=== PATIENT | male | born 1995 | race Hispanic/Latino ===

== ENCOUNTER 2022-03-22 15:11 | Emergency (ER) | payer SELFPAY ==
--- OUTSIDE RECORDS SUMMARY | 2022-03-22 16:38 | XMS REPORT | Continuity of Care Document ---
:1995 Author Organization [facility] t Address [address] [place] [address] [address] [place] [address] Care Team Providers Name Role Phone PCP, PATIENT DOES NOT HAVE A Primary Care Physician Unavaila SIRENA Milligan Attending Clinician Unavailable Sirena Gabriel Attending Clinician Problems Condition Condition Condition Status Onset Resolution Last Treating Co mments Source Name Details Category Date Date Treatment Clinician Date No known No known Disease Unive rs active active ity of problems problems [facility] Allergies, Adverse Reactions, Alerts Allergy Allergy Status Severity Reaction(s) Onset Inactive Treating Comm ents Source Name Type Date Date Clinician NO KNOWN Drug Active Univers ALLERGIE Class ity of S [facility] Social History Social Habit Start Date Stop Date Quantity Comments Source Exposure to 2022-03-10 2022-03-20 Not sure [facility] SARS-CoV-2 (event) 00:00:00 16:22:00 Medica l Branch [facility] At [birth year] [facility] Medical Branch Smoking Status Start Date Stop Date Source Tobacco smoking consumption Univ [facility] Branch Medications Ordered Filled Start Stop Current Ordering Indication Dosage Frequency Signature Comments Components Source Medication Medication Date Date Medication? Clinician (SIG) Name Name No known 2021-05 No No known Unive rs medications - medication it y of 16:22: s [address] Vital Signs Vital Name Observation Time Observation Value Comments Source Systolic blood 2022-03-20 22:24:00 164 mm[Hg] Univer sity of pressure [facility] Diastolic blood 2022-03-20 22:24:00 100 mm[Hg] [facility] of pressure [facility] Heart rate 2022-03-20 22:24:00 88 /min [facility] Body temperature 2022-03-20 22:24:00 37.06 Silva [facility] Respiratory rate 2022-03-20 22:24:00 16 /min [facility] Body height 2022-03-20 22:24:00 172.7 cm [facility] Body weight 2022-03-20 22:24:00 88.451 kg [facility] BMI 2022-03-20 22:24:00 29.65 kg/m2 [facility] Oxygen saturation in 2022-03-20 22:24:00 100 /min [facility] Arterial blood by [facility] Pulse oximetry Branch Procedures Procedure Date / Time Performed Performing Clinician Sour e URINALYSIS 2022-03-20 22:31:00 Amina Shelton [facility] Encounters Start End Encounter Admission Attending Care Care Encounter Source Date/Time Date/Time Type Type Clinicians Facility Department ID 2022-03-20 2022-03-20 Emergency X WALDROP, [facility] ERT [id number] Univers 16:28:00 18:00:00 SIRENA honeycutt [facility] 2022-03-20 2022-03-20 Emergency Waldrop, [facility] [id number] Univers 16:28:00 18:00:00 Sirena CRENSHAW [id number] i ty [facility] [id number] [facility] [id number] [facility] 084 Branch Results This patient has no known results.
[2022-03-22 16:54] LABS: Urine Blood Negative (Negative); Urine Glucose Negative (Negative); Urine Protein Negative (Negative); Urine Specific Gravity >=1.030 (1.005-1.030); Urine pH 5.5 (5.0-7.0)
[2022-03-22 17:11] LABS: Urine Mucus 2+ /HPF (None Seen); Urine RBC <5 /HPF (None Seen)
[2022-03-22 17:15] LABS: Absolute Lymphocytes (CBC) 2.2 K/uL (0.7-4.9); Hematocrit 45.3 % (39.6-49.0); Lymphocytes % 17.6 % (15.3-44.8); MCV 92.2 fL (80-100); MPV 8.5 fL (7.6-11.3); RBC Red Blood Cell Count 4.91 M/uL (4.33-5.43)
--- NOTE | 2022-03-22 18:16 | RAD REPORT ---
EXAM DESCRIPTION: CT - Stone Protocol - 03/22/2022 5:51 pm CLINICAL HISTORY: Flank pain. lower abdomen pain COMPARISON: No comparisons TECHNIQUE: Axial images were obtained without oral or IV contrast. Lack of contrast limits solid org an and vascular assessment. The [id number] spans the entirety of the system partially obscuring uppermost abdomen and lung bases. Coronal reformatted images were obtained and reviewed. All CT scans are performed using dose optimization technique as appropriate and may include automated exposure control or mA/KV adjustment according to patient size. FINDINGS: The lower lung pillai are clear. Imaged portions of the liver and spleen show no suspicious findings on non-contrast imaging. The panc reas and adrenal glands are normal. No pathologic lymphadenopathy in the abdomen or pelvis. No urinary tract stones or obstructive uropathy. No bowel obstruction, free air, free fluid or abscess. Normal appendix noted.Small fat containing umb ilical hernia. No significant bony abnormality. IMPRESSION: No urinary tract stones or obstructive uropathy.
--- NOTE | 2022-03-22 18:57 | ER ---
Nurse's Notes [facility] Name: Oli Wadsworth Age: 26 yrs Sex: Male : 1995 Arrival Date: 03/22/2022 Time: 15:13 Bed 11 Private MD: Diagnosis: Dysuria Presentation: 03/22 15:49 Chief complaint: Chief complaint: Patient states: burning urination since Tuesday iw went to [facility] but they told me i was fine; they did STD check and those two were negative I have them on my phone, but it says my urine culture has strep in it. They didn't treat me with nothing and were not helpful and I am prone to UTI's because I'm cut you know so I just want to make sure everything is okay I have this burning uncomfortable problem in my lower abdomen and when I pee. 16:06 Coronavirus screen: Vaccine status: Patient reports being unvaccinated. Client denies iw travel out of the [place] in the last 14 days. Ebola Screen: Patient negative for fever greater than or equal to 101.5 degrees Fahrenheit, and additional compatible Ebola Virus Disease symptoms Patient denies exposure to infectious person. Patient denies travel to an Ebola-affected area in the 21 days before illness onset. Initial Sepsis Screen: Does the patient meet any 2 criteria? No. Patient's initial sepsis screen is negative. Does the patient have a suspected source of infection? No. Patient's initial sepsis screen is negative. Risk Assessment: Do you want to hurt yourself or someone else? Patient reports no desire to harm self or others. 16:06 Method Of Arrival: Ambulatory iw 16:06 Acuity: QUIQUE 3 iw 20:03 Onset of symptoms was March 17, 2022. kb3 Triage Assessment: 16:12 General: Appears in no apparent distress. uncomfortable, slender, well groomed, well iw developed, Behavior is calm, cooperative, appropriate for age. Pain: Complains of pain in abdomen. Historical: - Allergies: 16:12 No Known Allergies; iw - PMHx: 16:12 Asthma; iw - Immunization history:: Adult Immunizations up to date. - Social history:: Smoking status: Patient denies any tobacco usage or history of. Screenin:30 Abuse screen: Denies threats or abuse. Denies injuries from another. Nutritional kb3 screening: No deficits noted. Tuberculosis screening: No symptoms or risk factors identified. Fall Risk None identified. Assessment: 16:30 General: Appears in no apparent distress. Behavior is calm, cooperative, Received care kb3 of pt from LATRELL gomes x4. Pt reports pain with urination X5 days. Reports he was seen in another ED 2 days ago and told urine was clear, STD tests were negative. Pt reports pain is now in right flank and radiates into right groin with suprapubic pain, burning with urination continues.. 16:30 : Reports burning with urination, pain urgency, urinary frequency, Right flank pain. kb3 Vital Signs: 16:06 BP 137 / 87; Pulse 73; Resp 16; Temp 98.7; Pulse Ox 96% ; Weight 88.45 kg; Height 5 ft. iw 8 in. (172.72 cm); Pain 6/10; 19:00 BP 125 / 89; Pulse 69; Resp 18; Pulse Ox 100% ; kb3 20:01 BP 120 / 86; Pulse 62; Resp 18; Pulse Ox 96% ; Pain 3/10; kb3 16:06 Body Mass Index 29.65 (88.45 kg, 172.72 cm) iw ED Course: 15:13 Patient arrived in ED. rg4 15:16 Jun Waddell PA is PHCP. cp 15:16 Didier Vicente MD is Attending Physician. cp 16:12 Triage completed. iw 16:12 Arm band placed on right wrist. iw 16:30 Patient has correct armband on for positive identification. Bed in low position. Call kb3 light in reach. Side rails up X 1. Warm blanket given. 16:30 No provider procedures requiring assistance completed. kb3 16:42 Virginia Soto, RN is Primary Nurse. kb3 16:56 Urine Microscopic Only Sent. kb3 17:06 BMP Sent. kb3 17:06 CBC with Diff Sent. kb3 17:09 Inserted saline lock: 20 gauge in left antecubital area, using aseptic technique. Blood kb3 collected. 17:[address] via wheelchair. kb3 17:53 CT Stone Protocol In Process Unspecified. EDMS 18:56 Srinivasa Christy MD is Referral Physician. cp 20:02 IV discontinued, intact, bleeding controlled, No redness/swelling at site. Pressure kb3 dressing applied. Administered Medications: 19:29 Drug: Rocephin (cefTRIAXone) 1 grams Route: IV; Rate: calculated rate; Site: left kb3 antecubital; 20:02 Follow up: Response: No adverse reaction; IV Status: Completed infusion; IV Intake: [id number] Medication: 16:30 VIS not applicable for this client. kb3 Intake: 20:02 IV: 50ml; Total: 50ml. kb3 Outcome: 18:56 Discharge ordered by . maureen 20:02 Discharged to home ambulatory. kb3 20:02 Condition: stable 20:02 Discharge instructions given to patient, Instructed on discharge instructions, follow up and referral plans. medication usage, Demonstrated understanding of instructions, follow-up care, medications, Prescriptions given X 1. 20:03 Patient left the ED. kb3 Signatures: Dispatcher [employer] EDMS Yuliana Hale RN RN iw Page, Corey, PA PA cp Garcia, Rubi rg4 Virginia Soto RN RN kb3 Corrections: (The following items were deleted from the chart) 16:12 15:49 Chief complaint: iw julita
--- NOTE | 2022-03-22 18:57 | EDPHYS ---
Physician Documentation [facility] Name: Oli Wadsworth Age: 26 yrs Sex: Male : 1995 Arrival Date: 03/22/2022 Time: 15:13 Bed 11 Private MD: ED Physician Didier Vicente HPI: 03/22 16:30 This 26 yrs old Male presents to ER via Ambulatory with complaints of Urinary cp Problem. 16:30 The patient presents with urinary symptoms, dysuria. cp 16:30 Onset: The symptoms/episode began/occurred 5 day(s) ago. cp 16:30 Associated signs and symptoms: Pertinent negatives: diarrhea, fever, hematuria, cp vomiting, penile discharge, genital rash. 16:30 Severity of symptoms: in the emergency department the symptoms are unchanged. cp 16:30 Patient reports he was seen at [facility] 3 days ago for similar symptoms and tested for cp gonorrhea and chlamydia. Has results on phone with urine culture results. Historical: - Allergies: 16:12 No Known Allergies; iw - PMHx: 16:12 Asthma; iw - Immunization history:: Adult Immunizations up to date. - Social history:: Smoking status: Patient denies any tobacco usage or history of. ROS: 16:35 Constitutional: Negative for body aches, chills, fever, poor PO intake. cp 16:35 : Positive for burning with urination. cp 16:35 Abdomen/GI: Positive for abdominal pain, Negative for vomiting, diarrhea, constipation. cp 16:35 Respiratory: Negative for cough, shortness of breath, wheezing. cp 16:35 Back: Negative for injury or acute deformity, decreased range of motion, radiated pain. 16:35 Skin: Negative for rash. 16:35 All other systems are negative. Exam: 16:40 Constitutional: The patient appears in no acute distress, alert, awake, comfortable, cp non-toxic, well developed, well nourished. 16:40 Head/Face: Normocephalic, atraumatic. cp 16:40 Eyes: Periorbital structures: appear normal, Conjunctiva: normal, no exudate, no injection, Sclera: no appreciated abnormality, Lids and lashes: appear normal, bilaterally. 16:40 ENT: External ear(s): are unremarkable, Nose: is normal, Mouth: Lips: moist, Oral mucosa: moist, Posterior pharynx: Airway: no evidence of obstruction, patent. 16:40 Chest/axilla: Inspection: normal. 16:40 Cardiovascular: Rate: normal. 16:40 Respiratory: the patient does not display signs of respiratory distress, Respirations: normal, no use of accessory muscles, no retractions. 16:40 Abdomen/GI: Inspection: abdomen appears normal, Palpation: soft, in all quadrants, mild abdominal tenderness, in the suprapubic area, right lower quadrant and left lower quadrant. 16:40 Back: pain, is absent, ROM is normal. 16:40 Neuro: Orientation: to person, place \T\ time. Mentation: is normal. Vital Signs: 16:06 BP 137 / 87; Pulse 73; Resp 16; Temp 98.7; Pulse Ox 96% ; Weight 88.45 kg; Height 5 ft. iw 8 in. (172.72 cm); Pain 6/10; 19:00 BP 125 / 89; Pulse 69; Resp 18; Pulse Ox 100% ; kb3 20:01 BP 120 / 86; Pulse 62; Resp 18; Pulse Ox 96% ; Pain 3/10; kb3 16:06 Body Mass Index 29.65 (88.45 kg, 172.72 cm) iw MDM: 16:24 Patient medically screened. 18:54 Data reviewed: vital signs, nurses notes, lab test result(s), radiologic studies, CT cp scan. ED course: Patient has urine CX results from [facility] that shows streptococcus bacteria grew from sample and sample was negative for gonorrhea and/or chlamydia. 03/22 16:18 Order name: CBC with Diff; Complete Time: 18:22 03/22 18:22 Interpretation: Normal except: WBC 12.40; ELIZABETH% 75.8; NEUT A 9.4. 03/22 16:18 Order name: BMP; Complete Time: 18:22 03/22 16:18 Order name: Urine Microscopic Only; Complete Time: 18:22 03/22 16:18 Order name: CT Stone Protocol; Complete Time: 18:22 03/22 19:05 Interpretation: Report reviewed. 03/22 16:55 Order name: Urine Dipstick-Ancillary; Complete Time: 18:22 EDMS 03/22 18:22 Interpretation: Reviewed. 03/22 16:18 Order name: IV Saline Lock; Complete Time: 17:06 cp 03/22 16:18 Order name: Labs collected and sent; Complete Time: 17:06 cp 03/22 16:18 Order name: Urine Dipstick-Ancillary (obtain specimen); Complete Time: 16:56 cp Administered Medications: 19:29 Drug: Rocephin (cefTRIAXone) 1 grams Route: IV; Rate: calculated rate; Site: left kb3 antecubital; 20:02 Follow up: Response: No adverse reaction; IV Status: Completed infusion; IV Intake: [id number] Disposition: 03/23 07:30 Co-signature as Attending Physician, Didier Vicente MD I agree with the assessment and rt plan of care. Disposition Summary: 03/22/22 18:56 Discharge Ordered Location: Home cp Problem: new cp Symptoms: have improved cp Condition: Stable cp Diagnosis - Dysuria cp Followup: cp - With: Srinivasa Christy MD - When: 1 week - Reason: symptoms continue Discharge Instructions: - Discharge Summary Sheet cp - Dysuria cp Forms: - Medication Reconciliation Form cp - Thank You Letter cp - Antibiotic Education cp - Prescription Opioid Use cp Prescriptions: - Augmentin 875-125 mg Oral Tablet - take 1 tablet by ORAL route every 12 hours for 10 days; 20 tablet; Refills: 0, cp Product Selection Permitted Signatures: Dispatcher [employer] Yuliana Tim, RN RN Jun aWddell PA PA cp Virginia Soto, RN RN kb3 Didier Vicente MD MD rt Corrections: (The following items were deleted from the chart) 03/22 18:58 18:54 ED course: Patient has urine CX results from [facility] that shows streptococcus cp bacteria grew from sample. cp
[2022-03-22] MEDS ORDERED: NA CHLORIDE 0.9% 50 ML IV ONE (19:23)
[2022-03-22] MEDS ORDERED: CEFTRIAXONE 1000 MG/VIAL ONE (19:23)
[2022-03-22 20:18] VITALS: TEMP 98.7
[2022-03-22 20:21] VITALS: BP 120/86; O2SAT 96
== END 2022-03-22 20:03 | disposition home or self-care (01) ==
LOC: ER 15:11
DX: R30.0 Dysuria (principal)
CPT/HCPCS: 36415; 74176; 76377; 80048; 81003; 81015; 85025; 96365; 99284